=== PATIENT | female | born 1960 | race Caucasian/White ===

== ENCOUNTER 2018-08-10 17:53 | Emergency (ER) | payer OTHER ==
--- NOTE | 2018-08-10 18:23 | ER Report ---
History and Physical Time Seen By MD: 18:22 Hx. of Stated Complaint: Patient with increased heart rate over the last two hours. Patient did take a nitro because of the fast heart rate. Patient has hx of 5 stents last two years ago HPI/ROS CHIEF COMPLAINT: shortness of breath and tachycardia HISTORY OF PRESENT ILLNESS: This is a 58 year old female. She is traveling from [place] back to her home in [place]. She has had sinus congestion that started yesterday. She took some Mucinex cold medication, which does contain Phenylephrine yesterday and today. She has had cough and shortness of breath. A few hours ago while driving, she started having a racing heart beat with the dyspnea. She has no pain associated with this. She has a history of SC at age 42 and has had multiple stents since then. She took a nitroglycerin tablet which helped reduce symptoms a little bit. She denies fevers. She does not smoke. No medication changes recently other than the over the counter Mucinex. No nausea or vomiting. No changes in bowel or bladder. REVIEW OF SYSTEMS: As above. Allergies: Coded Allergies: Penicillins (Verified Allergy, Severe, RASH, 08/10/18) Home Meds Reported Medications Linagliptin (TRADJENTA) 5 Mg Tablet, 5 MG PO 08/10/18 Glucosam/Chond/Hyalu/Cf Borate (Move Free Joint Health Tablet) 750 Mg-100 Mg- 1.65 Mg-108 Mg Tablet 08/10/18 Cholecalciferol (Vitamin D3) (VITAMIN D3) 2,000 Unit Capsule, 2000 UNIT PO, CAP HOLLIE 08/10/18 Torsemide (TORSEMIDE) 10 Mg Tablet, 10 MG PO 08/10/18 Glimepiride (GLIMEPIRIDE) 2 Mg Tablet, 2 MG PO QDAY 08/10/18 Aspirin (ASPIR 81) 81 Mg Tablet.dr, 81 MG PO QDAY, TAB 08/10/18 Potassium Chloride (KLOR-CON) 20 Meq Packet, 20 MEQ PO QDAY, PACKET 08/10/18 Prasugrel HCl (Prasugrel HCl) 5 Mg Tablet 08/10/18 Ezetimibe (ZETIA) 10 Mg Tablet, 10 MG PO QDAY, TAB 08/10/18 Sacubitril/Valsartan (Entresto 24 mg-26 mg Tablet) 1 Each Tablet 08/10/18 Atorvastatin Calcium (LIPITOR) 40 Mg Tablet, 1 TAB PO QDAY, TAB 08/10/18 Carvedilol (CARVEDILOL) 3.125 Mg Tab, 3.125 MG PO BID, TAB 08/10/18 Reviewed Nurses Notes: Yes Hx Substance Use Disorder: No Hx Alcohol Use: Yes (rare) Constitutional Vital Sign - Last 24 Hours 08/10/18 08/10/18 08/10/18 08/10/18 17:58 17:58 18:00 18:06 Pulse 28 Resp 16 B/P (MAP) 135/76 135/76 (95) 150/81 (104) Pulse Ox 58 O2 Delivery Room Air O2 Flow Rate 3.0 08/10/18 08/10/18 08/10/18 08/10/18 18:08 18:23 18:38 18:53 Pulse 109 104 Resp 24 29 14 37 Pulse Ox 92 93 92 08/10/18 08/10/18 08/10/18 08/10/18 19:08 19:23 19:30 19:38 Pulse 102 106 103 Resp 31 34 28 B/P (MAP) 135/88 (104) Pulse Ox 93 94 93 08/10/18 08/10/18 08/10/18 08/10/18 19:40 19:55 20:00 20:30 Pulse 102 99 Resp 24 28 B/P (MAP) 145/90 (108) 158/99 (118) Pulse Ox 93 93 08/10/18 08/10/18 08/10/18 08/10/18 20:40 20:55 21:00 21:35 Pulse 106 100 106 B/P (MAP) 156/100 (118) Pulse Ox 93 94 74 08/10/18 08/10/18 08/10/18 21:50 22:05 22:20 Pulse 99 98 98 Pulse Ox 93 94 94 Physical Exam General Appearance: The patient is alert. No acute distress. Non-toxic in appearance. Eyes: Pupils are equal, round. No pallor, injection or icterus. ENT: Mucous membranes are moist. Neck: Supple and non tender. No lymphadenopathy. Respiratory: Lungs are clear to auscultation. There are no retractions or a ccessory muscle use. Cardiovascular: Tachycardia, regular. No murmurs, gallops or rubs. Normal capil roe refill. No edema. Gastrointestinal: Abdomen is soft and non tender. Nondistended. Normal active bowel sounds. Neurological: Alert and oriented x3. No focal neurologic deficits. Skin: Warm and dry. No rashes. Musculoskeletal: Extremities are nontender. DIFFERENTIAL DIAGNOSIS: After history and physical exam, differential diagnosis was considered for tachycardia and shortness of breath including but not limited to altitude, decongestant medicine effect, pulmonary infectious process, acute c oronary syndrome, pulmonary embolus and congestive heart failure. Medical Decision Making Data Points Result Diagram: 08/10/183 08/10/183 Laboratory Hematology Test 08/10/18 18:13 Red Blood Count 5.04 M/uL (4.17-5.56) Mean Corpuscular Volume 83.4 fL (80.0-96.0) Mean Corpuscular Hemoglobin 28.3 pg (26.0-33.0) Mean Corpuscular Hemoglobin Concent 33.9 g/dL (32.0-36.0) Red Cell Distribution Width 13.9 % (11.5-14.5) Mean Platelet Volume 10.1 fL (7.2-11.1) Neutrophils (%) (Auto) 83.4 % (39.4-72.5) Lymphocytes (%) (Auto) 7.5 % (17.6-49.6) Monocytes (%) (Auto) 7.2 % (4.1-12.4) Eosinophils (%) (Auto) 1.3 % (0.4-6.7) Basophils (%) (Auto) 0.6 % (0.3-1.4) Nucleated RBC Relative Count (auto) 0.0 /100WBC Neutrophils # (Auto) 8.2 K/uL (2.0-7.4) Lymphocytes # (Auto) 0.7 K/uL (1.3-3.6) Monocytes # (Auto) 0.7 K/uL (0.3-1.0) Eosinophils # (Auto) 0.1 K/uL (0.0-0.5) Basophils # (Auto) 0.1 K/uL (0.0-0.1) Nucleated RBC Absolute Count (auto) 0.00 K/uL Prothrombin Time 13.0 seconds (12.0-14.4) Prothromb Time International Ratio 0.98 Activated Partial Thromboplast Time 32 seconds (23-35) D-Dimer Quantitative (PE/DVT) 0.63 ug/ml (0-0.50) Sodium Level 140 mmol/L (137-145) Potassium Level 4.3 mmol/L (3.5-5.0) Chloride Level 100 mmol/L (98-107) Carbon Dioxide Level 30 mmol/L (22-31) Blood Urea Nitrogen 16 mg/dl (7-18) Creatinine 0.70 mg/dl (0.52-1.04) Glomerular Filtration Rate Calc > 60.0 Random Glucose 168 mg/dl (75-110) Calcium Level 9.2 mg/dl (8.4-10.2) Total Bilirubin 0.7 mg/dl (0.2-1.3) Aspartate Amino Transf (AST/SGOT) 28 U/L (0-35) Alanine Aminotransferase (ALT/SGPT) 35 U/L (0-56) Alkaline Phosphatase 62 U/L (0-126) Troponin I 0.021 ng/ml Total Protein 7.2 g/dl (6.3-8.2) Albumin 3.9 g/dl (3.5-5.0) Chemistry Test 08/10/18 18:13 White Blood Count 9.9 k/uL (4.5-11.0) Red Blood Count 5.04 M/uL (4.17-5.56) Hemoglobin 14.3 g/dL (12.0-16.0) Hematocrit 42.1 % (34.0-47.0) Mean Corpuscular Volume 83.4 fL (80.0-96.0) Mean Corpuscular Hemoglobin 28.3 pg (26.0-33.0) Mean Corpuscular Hemoglobin Concent 33.9 g/dL (32.0-36.0) Red Cell Distribution Width 13.9 % (11.5-14.5) Platelet Count 159 K/uL (150-450) Mean Platelet Volume 10.1 fL (7.2-11.1) Neutrophils (%) (Auto) 83.4 % (39.4-72.5) Lymphocytes (%) (Auto) 7.5 % (17.6-49.6) Monocytes (%) (Auto) 7.2 % (4.1-12.4) Eosinophils (%) (Auto) 1.3 % (0.4-6.7) Basophils (%) (Auto) 0.6 % (0.3-1.4) Nucleated RBC Relative Count (auto) 0.0 /100WBC Neutrophils # (Auto) 8.2 K/uL (2.0-7.4) Lymphocytes # (Auto) 0.7 K/uL (1.3-3.6) Monocytes # (Auto) 0.7 K/uL (0.3-1.0) Eosinophils # (Auto) 0.1 K/uL (0.0-0.5) Basophils # (Auto) 0.1 K/uL (0.0-0.1) Nucleated RBC Absolute Count (auto) 0.00 K/uL Prothrombin Time 13.0 seconds (12.0-14.4) Prothromb Time International Ratio 0.98 Activated Partial Thromboplast Time 32 seconds (23-35) D-Dimer Quantitative (PE/DVT) 0.63 ug/ml (0-0.50) Glomerular Filtration Rate Calc > 60.0 Calcium Level 9.2 mg/dl (8.4-10.2) Total Bilirubin 0.7 mg/dl (0.2-1.3) Aspartate Amino Transf (AST/SGOT) 28 U/L (0-35) Alanine Aminotransferase (ALT/SGPT) 35 U/L (0-56) Alkaline Phosphatase 62 U/L (0-126) Troponin I 0.021 ng/ml Total Protein 7.2 g/dl (6.3-8.2) Albumin 3.9 g/dl (3.5-5.0) Coagulation Test 08/10/18 18:13 Prothrombin Time 13.0 seconds Prothromb Time International Ratio 0.98 Activated Partial Thromboplast Time 32 seconds D-Dimer Quantitative (PE/DVT) 0.63 ug/ml EKG/Imaging EKG Interpretation 12 lead EKG: Rhythm: Sinus tachycardia, rate 116 [place]: normal QRS: normal ST segments: normal Imaging EXAMINATION: Chest radiographs 2 views HISTORY: Dyspnea, tachycardia. COMPARISON: None. FINDINGS: PA and lateral views of the chest are submitted. Lines/tubes: None. Lungs/pleura: No focal consolidation or pleural effusion. Heart: Negative. Mediastinum: Negative. Bony structures/body wall: Negative. IMPRESSION: No radiographic evidence of acute cardiopulmonary disease. Report Dictated By: Mandy Torres MD at 08/10/2018 7:07 PM EXAMINATION: CT CHEST PULMONARY ANGIOGRAM COMPARISON: Chest x-ray same day. HISTORY: dyspnea, tachycardia PROCEDURE: Pulmonary arterial phase imaging of the chest with 75 mL intravenous Isovue 370. Reconstruction of the source data set includes multiplanar 2D in the sagittal and coronal planes, and 3D reconstructed coronal slab MIP series. One of the following dose optimization techniques was utilized in the performance of this exam: Automated exposure control; adjustment of the mA and/or kV according to the patient's size; or use of an iterative reconstruction technique. Specific details can be referenced in the facility's radiology CT exam operational policy. FINDINGS: Pulmonary vasculature: There is good contrast opacification of the pulmonary arterial system. No pulmonary embolism. Main pulmonary artery size is normal. Cardiac and mediastinum: Cardiac chamber size is normal. No pericardial effusion. Coronary calcifications and coronary stents. No thoracic aortic aneurysm. Tiny hiatal hernia. Multinodular thyroid. Lymph nodes: Negative. Lungs and pleura: Minimal volume loss in the lingula. No consolidation or suspicious nodule. No pneumothorax, edema, or effusion. Airways: Negative. Upper abdomen: No acute changes. Osseous structures: Negative. IMPRESSION: 1. No pulmonary embolism or evidence of acute cardiopulmonary disease. 2. Coronary calcifications. 3. Multinodular thyroid. 4. Tiny hiatal hernia. Report Dictated By: Vladimir Daily MD at 08/10/2018 8:39 PM ED Course/Re-evaluation Clinical Indication for ER IV: Hydration, IV Access ED Course After initial evaluation, patient was placed on oxygen with improvement of her shortness of breath and her heart rate came back down to normal. Labs are unremarkable other than mild elevation of the d-dimer. Chest x-ray negative. EKG was sinus tachycardia as noted above. Patient has CT angiogram which was negative for PE or other pathology. Discussed this with the patient. Trial on room air showed that she still dropped down to 80%. Recommended that she be on portable oxygen on her trip back home to [place] and follow-up with her doctor there. I would also like her to increase her carvedilol from 3.125 mg twice a day to 6.25 mg twice a day. Also recommended staying off of the phenylephrine and just using regular Mucinex. Decision to Disposition Date: Aug 10, 2018 Decision to Disposition Time: 21:57 Depart Departure Latest Vital Signs Vital Signs Date Time Temp Pulse Resp B/P (MAP) Pulse Ox O2 Delivery O2 Flow Rate FiO2 08/10/18 22:20 98 94 08/10/18 21:00 156/100 (118) 08/10/18 19:55 28 08/10/18 18:06 3.0 08/10/18 17:58 Room Air Impression: Primary Impression: Sinus congestion Additional Impressions: High altitude dyspnea Hypoxia Condition: Improved Disposition: HOME OR SELF-CARE Departure Forms: Home Oxygen, Nebulizer RX Durable Medical Equipment- Oxygen: Oxygen Concentrator, Portable Oxygen Gas Reason for Use/Diagnosis: hypoxia, upper respiratory infection, altitude related dyspnea Start Date of the Order: Aug 10, 2018 Dosage or Concentration (if applicable) - LPM: 2 Route of Administration (if applicable): Nasal Cannula Frequency of Use: Continuous Duration Home O2 Required: 1 Duration Units: Months Room Air Oxygen Saturation: 80 ER Prescribing Physician's Name: Yesenia Tineo NPI Numbers for Local ER MDs: Rivka [id number] Patient Instructions: Hypoxia (ED), Mountain Sickness (ED), Upper Respiratory Infection (ED) Additional Instructions: Your rapid heart rate and shortness of breath seem to be due to a combination of the decongestant medication and the elevation. Labs, EKG and imaging were negative for heart attack, blood clot or pneumonia, or other problem. Stop the Mucinex with the decongestant and just take regular mucinex. We are going to have you use oxygen until you return home and can follow-up with your regular doctor. Increase your carvedilol, take two of your 3.125mg tablets twice a day until you follow-up with your doctor. Problem Qualifiers Additional Impressions: High altitude dyspnea Encounter type: initial encounter Qualified Codes: T70.29XA - Other effects of high altitude, initial encounter YESENIA TINEO MD Aug 10, 2018 18:22
[2018-08-10] MEDS ORDERED: PRAS5TAB6 (18:27)
[2018-08-10] MEDS ORDERED: CHOL200025 PO (18:27)
[2018-08-10] MEDS ORDERED: ASPI-1471 PO (18:27)
[2018-08-10] MEDS ORDERED: EZET10TA41 PO (18:27)
[2018-08-10] MEDS ORDERED: GLUC1TAB66 (18:27)
[2018-08-10] MEDS ORDERED: GLIM2TAB43 PO (18:27)
[2018-08-10] MEDS ORDERED: TORS10TA25 PO (18:27)
[2018-08-10] MEDS ORDERED: ATOR40TA24 PO (18:27)
[2018-08-10] MEDS ORDERED: SACU1TAB (18:27)
[2018-08-10] MEDS ORDERED: CAR3.125 PO (18:27)
[2018-08-10] MEDS ORDERED: POTA20PA31 PO (18:27)
[2018-08-10] MEDS ORDERED: LINA5TAB PO (18:27)
[2018-08-10 18:52] LABS: PLATELET COUNT, AUTOMATED 159 K/uL (150-450)
--- NOTE | 2018-08-10 19:11 | RADIOLOGY IMAGING REPORT ---
FAC[place] [facility] [place]IENT NAME: Kortney Chisholm : 1960 MR: [id number] V: [id number] EXAM DATE: ORDERING PHYSICIAN: YESENIA CONTI TECHNOLOGIST: Location: [facility] Patient: Kortney Chisholm : 1960 Visit/Account:[id number] Date of Sevice: 08/10/2018 EXAMINATION: Chest radiographs 2 views HISTORY: Dyspnea, tachycardia. COMPARISON: None. FINDINGS: PA and lateral views of the chest are submitted. Lines/tubes: None. Lungs/pleura: No focal consolidation or pleural effusion. Heart: Negative. Mediastinum: Negative. Bony structures/body wall: Negative. IMPRESSION: No radiographic evidence of acute cardiopulmonary disease. Report Dictated By: Mandy Torres MD at 08/10/2018 7:07 PM Report E-Signed By: Mandy Torres MD at 08/10/2018 7:08 PM WSN:[id number]
[2018-08-10 19:13] LABS: INR 0.98
[2018-08-10] MEDS ORDERED: NS(*) 0.9% 50 ML BAG 50 ML ONE (19:31)
[2018-08-10] MEDS ORDERED: IOPAMIDOL 76% 75 ML INFUS BTL 75 ML ONE (19:31)
--- NOTE | 2018-08-10 20:55 | RADIOLOGY IMAGING REPORT ---
FACILITY: [facility] PATIENT NAME: Kortney Chisholm : 1960 MR: [id number] V: [id number] EXAM DATE: ORDERING PHYSICIAN: YESENIA CONTI TECHNOLOGIST: Location: [facility] [place] Patient: Kortney Chisholm : 1960 Visit/Account:[id number] Date of Sevice: 08/10/2018 EXAMINATION: CT CHEST PULMONARY ANGIOGRAM COMPARISON: Chest x-ray same day. HISTORY: dyspnea, tachycardia PROCEDURE: Pulmonary arterial phase imaging of the chest with 75 mL intravenous Isovue 370. Reconstru ction of the source data set includes multiplanar 2D in the sagittal and coronal planes, and 3D recon structed coronal slab MIP series. One of the following dose optimization techniques was utilized in the performance of this exam: Autom ated exposure control; adjustment of the mA and/or kV according to the patient's size; or use of an i terative reconstruction technique. Specific details can be referenced in the facility's radiology C T exam operational policy. FINDINGS: Pulmonary vasculature: There is good contrast opacification of the pulmonary arterial system. No pul monary embolism. Main pulmonary artery size is normal. Cardiac and mediastinum: Cardiac chamber size is normal. No pericardial effusion. Coronary calcificat ions and coronary stents. No thoracic aortic aneurysm. Tiny hiatal hernia. Multinodular thyroid. Lymph nodes: Negative. Lungs and pleura: Minimal volume loss in the lingula. No consolidation or suspicious nodule. No pneum othorax, edema, or effusion. Airways: Negative. Upper abdomen: No acute changes. Osseous structures: Negative. IMPRESSION: 1. No pulmonary embolism or evidence of acute cardiopulmonary disease. 2. Coronary calcifications. 3. Multinodular thyroid. 4. Tiny hiatal hernia. Report Dictated By: Vladimir Daily MD at 08/10/2018 8:39 PM Report E-Signed By: Vladimir Daily MD at 08/10/2018 8:51 PM WSN:[id number]
[2018-08-10 21:00] VITALS: BP 156/100
[2018-08-10] MEDS ORDERED: guaiFENesin 600 MG TABCR PO ONE (22:25)
--- NOTE | 2018-08-11 08:46 | EKG ---
FACILITY: [facility] PATIENT NAME: ARNAUD STONE : [id number] MR: [id number] V: [id number] EXAM DATE: ORDERING PHYSICIAN: YESENIA CONTI TECHNOLOGIST: JHON Leong Reason : FAST HEART RATE Blood Pressure : / mmHG Vent. Rate : 116 BPM Atrial Rate : 116 BPM P-R Int : 158 ms QRS Dur : 088 ms QT Int : 334 ms P-R-T Axes : 027 -06 061 degrees QTc Int : 464 ms Sinus tachycardia Poor R wave progression anteriorly Abnormal ECG No previous ECGs available Confirmed by HAYDEE ALEGRE ([id number]) on 08/11/2018 1:40:29 PM Referred By: Confirmed By:HAYDEE ALEGRE
== END 2018-08-10 22:50 | disposition home or self-care (01) ==
LOC: ER 18:31
DX: T70.29XA Other effects of high altitude, initial encounter (principal); R09.02 Hypoxemia; R09.81 Nasal congestion
CPT/HCPCS: 71046; 71275; 84484; 85025; 85379; 85610; 85730; 93005; 99284; J7050; Q9967; 82040; 82247; 82310; 82374; 82435; 82565; 82947; 84075; 84132; 84155; 84295; 84450; 84460; 84520